=== PATIENT | female | born 2000 | race Two or more races ===

== ENCOUNTER 2025-01-02 22:04 | Emergency (ER) | payer OTHER ==
[~2025-01-02] VITALS: Ht 152.4 cm; Wt 78.0 kg
[2025-01-02] MEDS ORDERED: HYDROCODONE/CHLORPHEN P-STIREX 5 ML ML PO STA (23:33)
[2025-01-03 00:18] LABS: BASO % 0.5 % (0.1-1.2); EOS # 0.15 (0.04-0.54); EOS % 1.6 % (0.7-7.0); LYMPH # 2.25 (1.18-3.74); LYMPH % 24.0 % (19.3-53.1); MEAN PLATELET VOLUME 10.00 fl (9.4-12.4); MONO # 1.02 (0.24-0.82); MONO % 10.9 % (4.7-12.5); NEUT # 5.88 (1.56-6.13); NEUT % 62.8 % (34.0-71.1); RED CELL DISTRIBUTION WIDTH 12.5 % (11.6-14.4)
[2025-01-03 01:01] LABS: COVID-19 AG NEGATIVE (NEGATIVE)
[2025-01-03] MEDS ORDERED: ORPHENADRINE CITRATE 30 MG/ML AMPUL IM STA (02:11)
[2025-01-03] MEDS ORDERED: ACETAMINOPHEN 500 MG GEL..CAP PO STA (02:11)
[2025-01-03] MEDS ORDERED: KETOROLAC TROMETHAMINE 60 MG VIAL IM STA (02:11)
== END 2025-01-03 03:05 | disposition home or self-care (01) ==
LOC: ER 22:04
DX: J06.9 Acute upper respiratory infection, unspecified (principal); B34.9 Viral infection, unspecified; Z20.822 Contact with and (suspected) exposure to COVID-19